=== PATIENT | male | born 1970 | race American Indian/Alaskan Native ===

== ENCOUNTER 2018-01-07 19:55 | Emergency (ER) | payer BC, OTHER ==
[2018-01-07] MEDS ORDERED: Sodium Chloride 0.9% 1,000 ML IV STA (20:20)
[2018-01-07 20:21] VITALS: BMI 59.6
--- NOTE | 2018-01-07 20:23 | ED PDOC ---
Arrival/HPI - General Time Seen by Provider: 01/07/18 20:09 - History of Present Illness Narrative History of Present Illness (Text): 47 year old M c Past medical history of diabetes p/w hyperglycemia. Patient was at outpatient detox and was found to have glucose of 500+ and instructed to come to Emergency department. Patient took glimepiride prior to arrival and triage fingerstick is 380. Patient states he forgot to take his dose of glimepiride earlier because he was in a [place]nandez. He also recently began taking a steroid medication. He states he feels quite well and denies fever, dyspnea, pain, vomiting. Past Medical History - Infectious Disease Hx of Infectious Diseases: None - Tetanus Immunization Tetanus Immunization: Unknown - Cardiac Hx Hypertension: Yes Hx Pacemaker: No - Pulmonary Hx Respiratory Disorders: Yes Hx Bronchitis: Yes Hx Pneumonia: Yes - Neurological Hx Paralysis: No - HEENT Hx HEENT Disorder: Yes - Renal Hx Renal Disorder: No - Endocrine/Metabolic Hx Diabetes Mellitus Type 2: Yes - Hematological/Oncological Hx Cirrhosis: Yes - Integumentary Hx Dermatological Disorder: No - Musculoskeletal/Rheumatological Hx Musculoskeletal Disorders: No - Gastrointestinal Hx Gastrointestinal Disorders: (PART OF THIS MONTH.,) - Genitourinary/Gynecological Hx Genitourinary Disorders: No - Psychiatric Hx Depression: No Hx Substance Use: No - Past Surgical History Past Surgical History: No Previous - Surgical History Other/Comment: Liver biopsy - Anesthesia Hx Anesthesia: Yes Hx Anesthesia Reactions: No Hx Malignant Hyperthermia: No - Suicidal Assessment Feels Threatened In Home Enviroment: No Family/Social History Family/Social History: No Known Family HX Smoking Status: Former Smoker Hx Alcohol Use: Yes Hx Substance Use: No Hx Substance Use Treatment: No Allergies/Home Meds Allergies/Adverse Reactions: Allergies No Known Allergies Allergy (Verified 08/14/16 11:18) Home Medications: Home Meds Medication Instructions Recorded Confirmed Folic Acid 1 mg PO DAILY 08/14/16 08/14/16 Insulin Glargine, Recombina 15 unit SQ HS 08/14/16 08/14/16 [Lantus] Insulin Lispro [Humalog (Insulin 7 unit SQ TID 08/14/16 08/14/16 Lispro)] Lipase/Protease/Amylase [[address] 1 each PO TID 08/14/16 08/14/16 6,000 Units Capsule] Magnesium Oxide [Magnesium] 400 mg PO DAILY 08/14/16 08/14/16 Phos Nak 1 packet PO TID 08/14/16 08/14/16 Phytonadione [Vitamin K Tab] 10 mg PO DAILY 08/14/16 08/14/16 Potassium Chloride [K-Tab ER] 2 tab PO DAILY 08/14/16 08/14/16 Thiamine [Vitamin B1 Tab] 100 mg PO DAILY 08/14/16 08/14/16 Review of Systems - Physician Review All systems were reviewed & negative as marked: Yes - Review of Systems Constitutional: absent: Fevers Respiratory: absent: SOB Cardiovascular: absent: Chest Pain Physical Exam - Physical Exam Narrative Physical Exam (Text): Constitutional: No acute distress. Head: Normocephalic. Atraumatic. Eyes: PERRL. ENT: Moist mucous membranes. Neck: Supple. Cardiovascular: Regular rate. Chest: No tenderness. Respiratory: Clear to auscultation bilaterally. GI: Soft. Nontender. Nondistended. Back: No CVA tenderness. Musculoskeletal: No tenderness or swelling of extremities. Skin: No rash. Neurologic: Alert, no focal deficit. Vital Signs Temp Pulse Resp BP Pulse Ox 01/07/18 20:32 98.6 F 81 18 112/60 99 Medical Decision Making ED Course and Treatment: Labs baseline. Hyperglycemia is elevated without DKA. Will advise continued oral hypoglycemics. - Lab Interpretations Lab Results: 01/07/18 21:06 01/07/18 21:06 Lab Results 01/07/18 21:07: Urine Color Yellow, Urine Appearance Clear, Urine pH 6.5, Ur Specific [place] 1.010, Urine Protein Negative, Urine Glucose (UA) 500 H, Urine Ketones Negative, Urine Blood Small H, Urine Nitrate Negative, Urine Bilirubin Negative, Urine Urobilinogen 2.0 H, Ur Leukocyte Esterase Negative, Urine RBC 10 - 15, Urine WBC 5 - 10, Ur Epithelial Cells 10 - 12 01/07/18 21:06: Sodium 135, Potassium 3.3 L, Chloride 101, Carbon Dioxide 22, Anion Gap 16, BUN 21, Creatinine 1.2, Est GFR ( Amer) > 60, Est GFR (Non- Af Amer) > 60, Random Glucose 477 H* D, Calcium 9.0, Total Bilirubin 5.0 H, AST 124 H, ALT 87 H, Alkaline Phosphatase 341 H, Total Protein 7.8, Albumin 3.4, Globulin 4.4, Albumin/Globulin Ratio 0.8 L 01/07/18 21:06: WBC 2.0 L* D, RBC 3.15 L, Hgb 10.1 L, Hct 28.8 L, MCV 91.4, MCH 32.1, MCHC 35.1, RDW 14.7 H, Plt Count 50 L, MPV 10.9, Gran % 50.5, Lymph % ( Auto) 36.4 H, Cook % (Auto) 11.9 H, Eos % (Auto) 0.6 L, Baso % (Auto) 0.6, Gran # 0.89 L, Lymph # (Auto) 0.6 L, Cook # (Auto) 0.2, Eos # (Auto) 0.0, Baso # ( Auto) 0.01 01/07/18 20:10: POC Glucose (mg/dL) 387 H - Medication Orders Current Medication Orders: Discontinued Medications Sodium Chloride (Sodium Chloride 0.9%) 1,000 mls @ 999 mls/hr IV .Q1H1M STA Stop: 01/07/18 21:20 Last Admin: 01/07/18 20:46 Dose: 999 mls/hr eMAR Start Stop Document 01/07/18 20:46 EDUARDO (Rec: 01/07/18 20:51 EDUARDO [id number]) Intravenous Solution Start Date 01/07/18 Start Time 20:46 Disposition/Present on Arrival - Present on Arrival Any Indicators Present on Arrival: No History of DVT/PE: No History of Uncontrolled Diabetes: No Urinary Catheter: No History Surgical Site Infection Following: None - Disposition Have Diagnosis and Disposition been Completed?: Yes Diagnosis: Hyperglycemia Disposition: HOME/ ROUTINE Disposition Time: 21:39 Patient Plan: Discharge Condition: STABLE Discharge Instructions (ExitCare): Hyperglycemia, Adult Additional Instructions: Brett Escobar had a high serum glucose partially due to a steroid medication and partially because he did not take his diabetes medication earlier in the day. In the Emergency Room, he was found NOT to be in diabetic ketoacidosis and is cleared for evaluation and treatment in his outpatient program.
[2018-01-07 20:38] VITALS: RESP 18; O2SAT 99
[2018-01-07 21:19] LABS: PH,URINE 6.5 (4.7-8.0); URINE BILIRUBIN NEGATIVE (NEGATIVE); URINE BLOOD SMALL (NEGATIVE); URINE GLUCOSE (UA) 500 mg/dL (NEGATIVE); URINE LEUKOCYTE ESTERASE NEGATIVE Leu/uL (NEGATIVE); URINE PROTEIN NEGATIVE mg/dL (<30 mg/dL)
[2018-01-07 21:19] LABS: BASO # 0.01 K/mm3 (0.0-2.0); BASO % 0.6 % (0.0-3.0); EOS % 0.6 % (1.5-5.0); GRAN # 0.89 (1.4-6.5); GRAN % 50.5 % (50.0-68.0); HEMOGLOBIN 10.1 g/dL (14.0-18.0); LYMPH # 0.6 (1.2-3.4); LYMPH % 36.4 % (22.0-35.0); MEAN CELL VOLUME 91.4 fl (80.0-105.0); MEAN CORPUSCULAR HEMOGLOBIN 32.1 pg (25.0-35.0); MEAN CORPUSCULAR HGB CONC 35.1 g/dl (31.0-37.0); MEAN PLATELET VOLUME 10.9 fl (7.0-11.0); MONO # 0.2 (0.1-0.6); MONO % 11.9 % (1.0-6.0); RBC 3.15 10^6/uL (3.5-6.1); RED CELL DISTRIBUTION WIDTH 14.7 % (11.5-14.5)
[2018-01-07 21:22] LABS: URINE APPEARANCE CLEAR (CLEAR); URINE COLOR YELLOW (YELLOW)
[2018-01-07 21:34] LABS: ALB/GLOB RATIO 0.8 (1.1-1.8); ALBUMIN 3.4 g/dL (3.0-4.8); ALT/SGPT 87 U/L (7-56); AST/SGOT 124 U/L (17-59); BLOOD UREA NITROGEN 21 mg/dL (7-21); GFR AFRICAN-AMERICAN > 60; GFR NON-AFRICAN AMERICAN > 60
[2018-01-07 22:58] VITALS: BP 114/62; PULSE 78; TEMP 98.8
== END 2018-01-07 21:55 | disposition home or self-care (01) ==
LOC: ED 19:55
DX: E11.65 Type 2 diabetes mellitus with hyperglycemia (principal); Z79.84 Long term (current) use of oral hypoglycemic drugs; I10 Essential (primary) hypertension; Z87.891 Personal history of nicotine dependence
CPT/HCPCS: 80053; 81001; 82948; 85025; 87086; 99284; J7030

== ENCOUNTER 2018-01-08 03:36 | Emergency (ER) | payer OTHER ==
[2018-01-08 03:47] VITALS: BMI 27.0
[2018-01-08 03:53] VITALS: RESP 18; TEMP 98.2; O2SAT 100
[2018-01-08] MEDS ORDERED: Insulin Regular 1 UNITS/0.01 ML ML SC STA (03:57)
[2018-01-08] MEDS ORDERED: Sodium Chloride 0.9% 1,000 ML IV SCH (04:00)
--- NOTE | 2018-01-08 04:05 | ED PDOC ---
Arrival/HPI - General Chief Complaint: High Blood Sugar Time Seen by Provider: 01/08/18 03:42 Historian: Patient - History of Present Illness Narrative History of Present Illness (Text): 01/08/18 03:59 47 year old male, with past medical history of diabetes, cirrhosis, hypertension , and alcohol abuse, presents to the Emergency department for evaluation of elevated blood sugar prior to arrival. Patient presented to the Emergency department earlier today with similar complaints but was discharged home after improvement. Patient states he is currently on steroid medications. Upon arrival to the Emergency department, patient's blood glucose level was approximately 500 mg/dL. Patient denies any fever, chills, nausea, vomiting, diarrhea, abdominal pain, chest pain, shortness of breath, polydipsia, polyuria or any other complaints. Patient presents to the Emergency department for medical evaluation. Time/Duration: Prior to Arrival Symptom Onset: Gradual Symptom Course: Unchanged Activities at Onset: Light Context: Home Past Medical History - Provider Review Nursing Documentation Reviewed: Yes - Infectious Disease Hx of Infectious Diseases: None - Tetanus Immunization Tetanus Immunization: Unknown - Cardiac Hx Hypertension: Yes Hx Pacemaker: No - Pulmonary Hx Respiratory Disorders: Yes Hx Bronchitis: Yes Hx Pneumonia: Yes - Neurological Hx Paralysis: No - HEENT Hx HEENT Disorder: Yes - Renal Hx Renal Disorder: No - Endocrine/Metabolic Hx Diabetes Mellitus Type 2: Yes - Hematological/Oncological Hx Cirrhosis: Yes - Integumentary Hx Dermatological Disorder: No - Musculoskeletal/Rheumatological Hx Musculoskeletal Disorders: No - Gastrointestinal Hx Gastrointestinal Disorders: (PART OF THIS MONTH.,) - Genitourinary/Gynecological Hx Genitourinary Disorders: No - Psychiatric Hx Depression: No Hx Substance Use: No - Past Surgical History Past Surgical History: No Previous - Surgical History Other/Comment: Liver biopsy - Anesthesia Hx Anesthesia: Yes Hx Anesthesia Reactions: No Hx Malignant Hyperthermia: No - Suicidal Assessment Feels Threatened In Home Enviroment: No Family/Social History - Physician Review Nursing Documentation Reviewed: Yes Family/Social History: No Known Family HX Smoking Status: Former Smoker Hx Alcohol Use: Yes Hx Substance Use: No Hx Substance Use Treatment: No Allergies/Home Meds Allergies/Adverse Reactions: Allergies No Known Allergies Allergy (Verified 08/14/16 11:18) Home Medications: Home Meds Medication Instructions Recorded Confirmed Fludrocortisone Acetate 0.1 mg PO DAILY 01/08/18 01/08/18 [Fludrocortisone Acetate] Furosemide [Lasix] 40 mg PO DAILY 01/08/18 01/08/18 Glimepiride [amaRYL] 2 mg PO DAILY 01/08/18 01/08/18 Lipase/Protease/Amylase [Creon Dr 6,000 units PO DAILY 01/08/18 01/08/18 6,000 Units Capsule] Midodrine [Proamatine] 2.5 mg PO DAILY 01/08/18 01/08/18 Potassium Chloride [Klor-Con 10] 10 meq PO DAILY 01/08/18 01/08/18 predniSONE [predniSONE Tab] 50 mg PO QOTHERDAY 01/08/18 01/08/18 Review of Systems - Physician Review All systems were reviewed & negative as marked: Yes - Review of Systems Constitutional: Normal. absent: Fevers Eyes: Normal ENT: Normal Respiratory: Normal. absent: SOB Cardiovascular: Normal. absent: Chest Pain Gastrointestinal: Normal. absent: Abdominal Pain, Diarrhea, Nausea, Vomiting Genitourinary Male: Normal Musculoskeletal: Normal Skin: Normal Neurological: Normal Endocrine: Normal. absent: Polyuria, Polydipsia Hemo/Lymphatic: Normal Psychiatric: Normal Physical Exam Vital Signs Reviewed: Yes Vital Signs Temp Pulse Resp BP Pulse Ox 01/08/18 07:06 74 18 131/87 100 01/08/18 06:14 79 18 130/90 100 01/08/18 03:50 98.2 F 86 18 149/92 H 100 Temperature: Afebrile Blood Pressure: Normal Pulse: Tachycardic Respiratory Rate: Normal Appearance: Positive for: Well-Appearing, Non-Toxic, Comfortable Pain Distress: None Mental Status: Positive for: Alert and Oriented X 3 Finger Stick Blood Glucose: 491 - Systems Exam Head: Present: Atraumatic, Normocephalic Pupils: Present: PERRL Extroacular Muscles: Present: EOMI Conjunctiva: Present: Normal Mouth: Present: Moist Mucous Membranes Neck: Present: Normal Range of Motion Respiratory/Chest: Present: Clear to Auscultation, Good Air Exchange. No: Respiratory Distress, Accessory Muscle Use Cardiovascular: Present: Regular Rate and Rhythm, Normal S1, S2. No: Murmurs Abdomen: No: Tenderness, Distention, Peritoneal Signs Back: Present: Normal Inspection Upper Extremity: Present: Normal Inspection. No: Cyanosis, Edema Lower Extremity: Present: Normal Inspection. No: Edema Neurological: Present: GCS=15, CN II-XII Intact, Speech Normal Skin: Present: Warm, Dry, Normal Color. No: Rashes Psychiatric: Present: Alert, Oriented x 3, Normal Insight, Normal Concentration Medical Decision Making ED Course and Treatment: 01/08/18 04:05 Impression: 47 year old male presents to the Emergency department for elevated blood sugar. Differential Diagnosis included but are not limited to: Elevated blood sugar Plan: -- Labs -- IV Fluids -- Insulin -- Reassess and disposition Prior Visits: Notes and results from previous visits were reviewed. Progress Notes: - Lab Interpretations Lab Results: 01/08/18 04:00 01/08/18 04:00 Lab Results 01/08/18 06:48: POC Glucose (mg/dL) 372 H 01/08/18 05:09: POC Glucose (mg/dL) 500 H* 01/08/18 04:00: Sodium 132, Potassium 3.3 L, Chloride 94 L, Carbon Dioxide 22, Anion Gap 19, BUN 22 H, Creatinine 1.1, Est GFR ( Amer) > 60, Est GFR ( Non-Af Amer) > 60, Random Glucose 587 H* D, Calcium 8.8, Total Bilirubin 5.5 H, AST 115 H, ALT 77 H, Alkaline Phosphatase 422 H D, Total Protein 8.3, Albumin 3.8, Globulin 4.5, Albumin/Globulin Ratio 0.8 L 01/08/18 04:00: WBC 1.7 L*, RBC 3.45 L, Hgb 11.1 L, Hct 31.5 L, MCV 91.3, MCH 32.2, MCHC 35.2, RDW 14.7 H, Plt Count 48 L*, MPV 12.0 H, Gran % 78.9 H, Lymph % (Auto) 20.5 L, [place] % (Auto) 0.6 L, Eos % (Auto) 0.0 L, Baso % (Auto) 0.0, Gran # 1.31 L, Lymph # (Auto) 0.3 L, [place] # (Auto) 0.0 L, Eos # (Auto) 0.0, Baso # (Auto) 0.00 01/08/18 03:45: POC Glucose (mg/dL) 491 H* - Medication Orders Current Medication Orders: Discontinued Medications Sodium Chloride (Sodium Chloride 0.9%) 1,000 mls @ 150 mls/hr IV .Q6H40M JULIA Last Admin: 01/08/18 04:11 Dose: 150 mls/hr eMAR Start Stop Document 01/08/18 04:11 AD (Rec: 01/08/18 04:12 AD [id number]) Intravenous Solution Start Date 01/08/18 Start Time 04:12 Insulin Human Regular (Humulin R) 6 units SC STAT STA Stop: 01/08/18 03:58 Last Admin: 01/08/18 04:12 Dose: 6 units MAR Blood Glucose Document 01/08/18 04:12 AD (Rec: 01/08/18 04:12 AD [id number]) Blood Glucose Finger Stick Blood Glucose (70-120) 491 Subcutaneous Administrations Document 01/08/18 04:12 AD (Rec: 01/08/18 04:12 AD [id number]) Injection Site MAR Injection Site Left Abdomen Charges for Administration # of Subcutaneous Administrations 1 Insulin Human Regular (Humulin R) 8 units IV STAT STA PRN Reason: Protocol Stop: 01/08/18 05:56 Last Admin: 01/08/18 06:11 Dose: 8 units eMAR Start Stop Document 01/08/18 06:11 AD (Rec: 01/08/18 06:11 AD [id number] Intravenous Solution Start Date 01/08/18 Start Time 06:11 MAR Blood Glucose Document 01/08/18 06:11 AD (Rec: 01/08/18 06:11 AD [id number] Blood Glucose Finger Stick Blood Glucose (70-120) 500 - Scribe Statement The provider has reviewed the documentation as recorded by the Scribe Angel Pace. All medical record entries made by the Scribe were at my direction and personally dictated by me. I have reviewed the chart and agree that the record accurately reflects my personal performance of the history, physical exam, medical decision making, and the department course for this patient. I have also personally directed, reviewed, and agree with the discharge instructions and disposition. Disposition/Present on Arrival - Present on Arrival Any Indicators Present on Arrival: No History of DVT/PE: No History of Uncontrolled Diabetes: Yes Urinary Catheter: No History of Decub. Ulcer: No History Surgical Site Infection Following: None - Disposition Have Diagnosis and Disposition been Completed?: Yes Diagnosis: Hyperglycemia, drug-induced Disposition: HOME/ ROUTINE Disposition Time: 06:50 Condition: GOOD Discharge Instructions (ExitCare): Hyperglycemia, Adult, Adverse Drug Reactions , Adult Additional Instructions: pt is cleared for out patient treatment, pt was steroids which elevated his glucose Referrals: Collin Castañeda MD [Primary Care Provider] - Follow up with primary Forms: [employer] (Peruvian)
[2018-01-08 04:34] LABS: GRAN # 1.31 (1.4-6.5); GRAN % 78.9 % (50.0-68.0); HEMOGLOBIN 11.1 g/dL (14.0-18.0); LYMPH # 0.3 (1.2-3.4); LYMPH % 20.5 % (22.0-35.0); MEAN CELL VOLUME 91.3 fl (80.0-105.0); MEAN CORPUSCULAR HEMOGLOBIN 32.2 pg (25.0-35.0); MEAN CORPUSCULAR HGB CONC 35.2 g/dl (31.0-37.0); MONO % 0.6 % (1.0-6.0); RBC 3.45 10^6/uL (3.5-6.1); RED CELL DISTRIBUTION WIDTH 14.7 % (11.5-14.5)
[2018-01-08 04:37] LABS: PLATELET COUNT 48 10^3/uL (120.0-450.0); WHITE BLOOD COUNT 1.7 10^3/ul (4.5-11.0)
[2018-01-08 04:49] LABS: ALB/GLOB RATIO 0.8 (1.1-1.8); ALBUMIN 3.8 g/dL (3.0-4.8); ALT/SGPT 77 U/L (7-56); AST/SGOT 115 U/L (17-59); BLOOD UREA NITROGEN 22 mg/dL (7-21); CALCIUM 8.8 mg/dL (8.4-10.5); GFR AFRICAN-AMERICAN > 60; GFR NON-AFRICAN AMERICAN > 60
[2018-01-08] MEDS ORDERED: Insulin Regular 1 UNITS/0.01 ML ML IV STA (05:55)
[2018-01-08 07:07] VITALS: BP 131/87; PULSE 74
== END 2018-01-08 07:06 | disposition home or self-care (01) ==
LOC: ED 03:36
DX: E09.65 Drug or chemical induced diabetes mellitus with hyperglycemia (principal); T50.995A Adverse effect of other drugs, medicaments and biological substances, initial encounter; Y92.89 Other specified places as the place of occurrence of the external cause; I10 Essential (primary) hypertension; Z87.891 Personal history of nicotine dependence
CPT/HCPCS: 80053; 82948; 85025; 96372; 99284; J7030